=== PATIENT | male | born 1975 | race Two or more races ===

== ENCOUNTER 2024-11-17 17:15 | Emergency (ER) | payer MEDICAID, SELFPAY ==
[2024-11-17 18:16] VITALS: BP 161/98; PULSE 107; RESP 18; TEMP 36.5; O2SAT 96; BMI 35.9
--- NOTE | 2024-11-17 18:32 | XR_ITS ---
Examination: CT abdomen and pelvis without contrast. Coronal 3-D reconstructions. Sagittal 2-D reconstructions. Date and time of exam:November 17, 2024 1859 hrs. Indications: Acute urinary tract infection with lower abdominal pain beginning one week ago CTDI: vol (mGy): 14.8 DLP: (mGycm): 1121 Technique: Axial images of the abdomen have been obtained, 3 mm slice thickness Intravenous contrast material has not been administered. Low dose protocols were performed. One or more of the following dose reduction techniques were used; automated exposure control, adjustment of the mA and/or KV according to patient size, use of iterative reconstruction technique. Findings: Small to moderate right pleural effusion Mild enlargement cardiac contour with trace pericardial effusion Liver irregular in contour Mild ascites Gallbladder wall is thickened and edematous appearing Spleen is not enlarged No pancreatic or adrenal mass Anasarca 2 mm nonobstructing 1 mm nonobstructing right renal calculi No bowel obstruction Normal appendix No prostatomegaly Urinary bladder is not distended Moderate disc narrowing L5-S1 Impression: Cirrhosis Mild ascites Gallbladder wall is thickened which may relate to the patient's ascites, recommend hepatobiliary sonography follow-up Nonobstructing right renal calculi Urinary bladder is not distended
--- NOTE | 2024-11-17 18:33 | PD.EDRME ---
Rapid Medical Screening Exam RME Arrival date/time: 11/17/24 17:15 49-year-old male presents emergency department complaining of penile edema and acute urinary retention. Chief Complaint: Urogenital-Male Time Seen by Provider: 11/17/24 18:22 Vital signs: Vital Signs Temperature 97.7 F 11/17/24 18:16 Pulse Rate 107 H 11/17/24 18:16 Respiratory Rate 18 11/17/24 18:16 Blood Pressure 161/98 H 11/17/24 18:16 Pulse Oximetry (%) 96 11/17/24 18:16 Oxygen Delivery Method Room Air 11/17/24 18:16 Vital signs reviewed by provider: Yes
--- NOTE | 2024-11-17 18:55 | PC.NURSE ---
pt to ct at this time
[2024-11-17 18:58] LABS: Basophils # (Auto) 0.1 Thou/mm3 (0.0-0.2); Basophils % (Auto) 1 % (0-2.5); Eosinophils # (Auto) 0.1 Thou/mm3 (0.0-0.5); Eosinophils % (Auto) 1 % (0-10); Hematocrit 41.4 % (41.0-53.0); Hemoglobin 13.3 g/dL (13.5-16.0); Immature Granulocytes % (Auto) 0 % (0-0); Immature Granulocytes Auto 0.02 Thou/mm3 (0.00-0.00); Lymphocytes # (Auto) 1.9 Thou/mm3 (1.0-4.8); Lymphocytes % (Auto) 23 % (10-50); Mean Corpuscular HGB Conc 32.1 g/dl (31.0-37.0); Mean Corpuscular Hemoglobin 27.9 pg (25.0-35.0); Mean Corpuscular Volume 87 fL (80-100); Monocytes # (Auto) 0.7 Thou/mm3 (0.0-0.8); Monocytes % (Auto) 8 % (0-12); Neutrophils # (Auto) 5.6 Thou/mm3 (1.8-7.7); Neutrophils % (Auto) 67 % (37-80); Nucleated Red Blood Cell % 0 /100 WBC (0); Platelet Count 260 Thou/mm3 (140-440); RDW Standard Deviation 46.2 fL (35.1-43.9); Red Blood Count 4.76 Miln/mm3 (4.50-5.90); White Blood Count 8.4 Thou/mm3 (3.8-10.6)
[2024-11-17 19:18] LABS: Alanine Aminotransferase 38 U/L (10-49); Albumin, Serum 4.4 gm/dL (3.5-5.0); Albumin/Globulin Ratio 1.6 (1.2-2.2); Alkaline Phosphatase 146 U/L (46-116); Anion Gap 6 (7-16); Aspartate Amino Transferase 38 U/L (0-34); BUN/Creatinine Ratio 14 Ratio (12-20); Blood Urea Nitrogen 14 mg/dL (9-23); Calcium 9.6 mg/dL (8.3-10.6); Calcium (Corrected) 9.6 mg/dL (8.5-10.1); Carbon Dioxide 27.6 mMol/L (20.0-31.0); Chloride 105 mMol/L (98-107); Estimated Creatinine Clearance 120.9 mL/min (>60); Globulin 2.7 gm/dL (2.3-3.5); Glucose 145 mg/dL (74-106); Osmolality,Calculated 281 (275-295); Potassium 5.2 mMol/L (3.4-5.1); Sodium 139 mMol/L (136-145); Total Protein 7.1 gm/dL (5.7-8.2); eGFR > 60 See Note
[2024-11-17 21:04] LABS: Collection Type, Urine Catheter
[2024-11-17 21:21] LABS: Bilirubin,Urine Negative (Negative); Blood,Urine Negative (Negative); Clarity,Urine Clear (Clear/Hazy); Color,Urine Yellow (Lt Yel-Yel); Culture Indicated,Urine Not Indicated; Glucose, Urine Negative (Negative); Hyaline Casts,Urine < 1 /hpf (0-1); Ketones,Urine Negative (Negative); Leukocyte Esterase,Urine Negative (Negative); Nitrite,Urine Negative (Negative); Protein,Urine 1+ (Neg - Trace); RBC,Urine 2 /hpf (0-3); Specific Gravity,Urine 1.026 (1.001-1.035); Squamous Epithelial Cell,Urine < 1 /hpf (0-5); Urobilinogen,Urine Negative mg/dL (0.0-1.0); WBC,Urine 3 /hpf (0-5)
--- NOTE | 2024-11-18 00:09 | PD.EDMALE ---
ED Male Genitalurinary RME/HPI General Chief complaint: Urogenital-Male Stated complaint: URINARY RETENTION Time Seen by Provider: 11/17/24 18:22 Arrival date/time: 11/17/24 17:15 RME / HPI RME / HPI Narrative: 11/17/24 17:15 49-year-old male presents emergency department complaining of penile edema and acute urinary retention. ------ This section includes all my notes and documentations, including HPI, PE, and ED course. Winston Bush MD HPI: 49yo male presents to the ED for a chief complaint of urinary retention x 3 weeks, worse today for hours just prior to arrival. Patient states he hasn't been able to urinate normally, reporting his urine has been dribbling. He reports associated lower abdominal pain. He denies any fever, chills, N/V or any other associated symptoms. No other complaints reported. ROS: All negative except as documented in HPI. Physical Exam: General: Alert and oriented. No acute distress when remaining still. Eyes: Conjunctivae and lids clear. ENT: No nasal congestion. Neck: Supple. Heart: RRR. Lungs: No respiratory distress. Good air movement. No rhonchi, wheezing, rales. Abdomen: Soft and nontender. Skin: Warm and dry. Neuro: Alert and oriented X 3. I reviewed all diagnostic test results. My review of the CT report is no acute findings. Blood tests and urine tests unremarkable. At this point, diagnoses include urinary retention due to BPH. Treatment here included Pope catheter. Significant improvement noted. Patient pulled out the catheter himself after deflating the balloon. He declined another one. Recommended more outpatient care. Based on my best medical judgment, made decision no further evaluation or treatment indicated at this time. Patient understands and agrees to the discharge instructions customized and printed, see below. Discharge Instructions from Dr. Bush printed for you: 1. Your urinary retention is most likely due to enlarged prostate gland, see attached handout about enlarged prostate. 2. Since you pulled out the Pope catheter yourself and you declined another one, you are going home without indwelling Pope catheter. You may develop urinary retention again and may have to come back. 3. Take finasteride and Flomax daily to help decrease your prostate gland but this will take weeks and months. 4. See a private doctor on 11/19/2024 for recheck and further care. Ask to review all test results and official radiology reports, to make sure you receive all necessary follow-ups and monitoring, including your abdominal CT report which shows ascites, see attached handout about ascites. Ask for referrals to see urologist and prn physical therapist. 5. Seek immediate medical care with worsening or with any concerns. Winston Bush MD Related Data Previous Rx's ?Medication ?Instructions ?Recorded finasteride 5 mg tablet 5 mg PO QDAY #30 tabs 11/18/24 tamsulosin 0.4 mg capsule (Flomax) 0.4 mg PO QDAY #30 caps 11/18/24 Allergies Allergy/AdvReac Type Severity Reaction Status Date / Time No Known Allergies Allergy Verified 11/17/24 17:23 Review of Systems Review of Systems Systems Reviewed: All systems reviewed, normal except as documented Past Medical History Social History SMOKING STATUS: Never smoker ED Exam Narrative Physical exam: As noted in HPI. Course Quality Measures none Orders Category Date Time Status Pope [Urinary Catheter] QS Care 11/17/24 20:29 Active Pope to [place] Routine Care 11/17/24 18:[address] abdomen pelvis wo con Stat Exams 11/17/24 18:32 Completed CBC Stat Lab 11/17/24 18:45 Completed CMP [Comprehensive Metabolic Panel] Stat Lab 11/17/24 18:45 Completed Urinalysis, C/S if Indicated Stat Lab 11/17/24 20:00 Completed Vital Signs Vital signs: Vital Signs Temperature 97.7 F 11/17/24 18:16 Pulse Rate 107 H 11/17/24 18:16 Respiratory Rate 18 11/17/24 18:16 Blood Pressure 161/98 H 11/17/24 18:16 Pulse Oximetry (%) 96 11/17/24 18:16 Oxygen Delivery Method Room Air 11/17/24 18:16 Urogenital - Male MDM Narrative MDM Narrative:: Scribe Attestation: 11/18/24 Peri Granados am scribing for and in the presence of Dr. Bush. Patient data External records reviewed:: [facility] previous records (Per chart review, patient has no previous ED visits or admissions to this facility.) Clinical information provided by:: patient Social determinants that could affect healthcare access:: none Patient has the following chronic illnesses:: none How is presenting disease/condition affected by chronic disease/condition?: no chronic disease Evaluation data The following diagnostics were reviewed and interpreted by me:: lab results and radiology exam(s) Lab and/or radiology exams considered but not ordered:: none Interpretation Summary: Urinary retention due to BPH Medications / Prescriptions Medications or Prescriptions considered but not ordered:: none Medication administrations:: None Consultations Consultation(s) initiated? (list below): No Diagnosis Urogenital Male Differential Diagnosis: urinary tract infection, urethritis, acute retention of urine and other (BPH) Most likely diagnosis given after review of the tests above:: Urinary retention due to BPH Admission Indicated Admission indicated?: not indicated Explain why admission is indicated or not indicated:: Admission criteria not met Admission Request Was there a request for admission?: No Disposition Plan Disposition Plan: Discharge Discharge Attestation Discharge Attestation: The patient and all family members were given an opportunity to ask questions and understood the discharge instructions. Discharge instructions specifically effects, indications for sooner follow up or return to the emergency department, and the expected course of current diagnosis. Patient condition: Stable Discharge Plan Plan Patient Disposition: HOME (Self Care) Prescriptions/Referrals Prescriptions/Med Rec: New tamsulosin [Flomax] 0.4 mg capsule 0.4 mg PO QDAY Qty: 30 1RF finasteride 5 mg tablet 5 mg PO QDAY Qty: 30 1RF Referrals: Blake Reynoso MD [Primary Care Provider] - In 1 week Problem List Clinical Impression: Acute urinary retention Patient/Caregiver Discharge Instructions Education Materials: ED Ascites, ED BPH (Enlarged Prostate), ED Urinary Retention, Male Additional Instructions: Discharge Instructions from Dr. Bush printed for you: 1. Your urinary retention is most likely due to enlarged prostate gland, see attached handout about enlarged prostate. 2. Since you pulled out the Pope catheter yourself and you declined another one, you are going home without indwelling Pope catheter. You may develop urinary retention again and may have to come back. 3. Take finasteride and Flomax daily to help decrease your prostate gland but this will take weeks and months. 4. See a private doctor on 11/19/2024 for recheck and further care. Ask to review all test results and official radiology reports, to make sure you receive all necessary follow-ups and monitoring, including your abdominal CT report which shows ascites, see attached handout about ascites. Ask for referrals to see urologist and prn physical therapist. 5. Seek immediate medical care with worsening or with any concerns. Print Language: Micronesian Stand Alone Forms: [employer] Award Info., Patient Portal Info Letter
[2024-11-18 00:20] VITALS: BP 158/92; PULSE 98; RESP 18; TEMP 36.6; O2SAT 99
--- NOTE | 2024-11-18 00:38 | PC.NURSE ---
AGUIRRE CATHETER WAS REMOVED BY PATIENT. PATIENT STATED HE WAS READY TO LEAVE AND DID NOT WANT THE CATHETER. PATIENT SAID HE GOOGLED HOW TO TAKE OUT A CATHETER AND DEFLATED THE BALLOON BEFORE PULLING IT OUT. PATIENT GCS15. NO SIGNS OF ACUTE DISTRESS NOTED. PROVIDER AWARE THAT PATIENT TOOK OUT CATHETER.
== END 2024-11-18 00:41 | disposition home or self-care (01) ==
PROVIDERS: Emergency Provider Emergency Medicine; PCP Family Medicine
DX: N40.1 Benign prostatic hyperplasia with lower urinary tract symptoms (principal); R33.8 Other retention of urine; R18.8 Other ascites
CPT/HCPCS: 51702; 36415; 74176; 80053; 81001; 85025; 99284